=== PATIENT | male | born 1950 | race Caucasian/White ===

== ENCOUNTER 2016-11-22 07:15 | Day surgery (SDC) | payer MEDICARE ==
[~2016-11-22 07:15] MED LIST: 0.9% Sodium Chloride 1,000 ML IV SCH; ASCO100089 PO; ASPI-973 PO; CHOL10008 PO; GLUC1500 PO; LIP40 PO; LISI-571 PO; MULT1CAP33 PO; OMEG1CAP17 PO; Sodium Chloride LOK Flush 10 mL Syringe IV PRN; TAMS0.4C98 PO; [UNRECOGNIZED DRUG - OTHER] PO; fentaNYL-PF 50 mCg/mL 2 mL Inj IVPUSH PRN
[2016-11-22 07:25] VITALS: BP 151/76; PULSE 55; RESP 12; O2SAT 99
[2016-11-22 08:21] VITALS: BP 116/51; PULSE 47; RESP 16; O2SAT 97
[2016-11-22 08:29] VITALS: BP 113/67; PULSE 50; RESP 16; O2SAT 98
[2016-11-22 08:33] VITALS: BP 114/66; PULSE 50; RESP 16; O2SAT 97
--- NOTE | 2016-11-22 09:03 | ENDO ---
[address] [address] ENDOSCOPY PROCEDURE PATIENT: ESPINOZA HINES : 1950 MR#: [id number] ADMIT: 11/22/2016 JOB ID: [id number] DATE: 11/22/2016 PREOPERATIVE DIAGNOSIS(ES): Colorectal cancer screening. POSTOPERATIVE DIAGNOSIS(ES): Normal colonoscopy to cecum. OPERATION: Colonoscopy to cecum. SURGEON: Bryce Aldana MD. INDICATIONS: A 66-year-old man who is here for 10 year followup after a normal colonoscopy 10 years ago. After discussing the procedure and potential complications, he agreed to proceed. FINDINGS: He had a good prep. The scope was advanced to the cecum with clear visualization of the ileocecal valve and the appendiceal orifice which was photographed. He had a good prep. The scope was withdrawn over 8 minutes and 10 seconds. Retroflexed views of the rectum were obtained. There were no abnormalities including I saw no diverticula. There were no polyps, other neoplastic changes, ulcerations or vascular lesions. DESCRIPTION OF PROCEDURE: The procedure and sedation plan was discussed with the patient and nursing staff, and a procedural time-out was held. He received 5 mg of Versed and 100 mcg of fentanyl. Digital rectal examination was performed and the Olympus PCF H 180 AL video colonoscope was passed transanally, advanced to the cecum, withdrawn with results as stated above. No biopsies were taken. There were no complications. IMPRESSION: Normal colonoscopy to cecum. RECOMMENDATIONS: Repeat colonoscopy in 10 years.
== END 2016-11-22 23:59 | disposition home or self-care (01) ==
LOC: END 07:15
PROVIDERS: ATTEND Surgery
DX: Z12.11 Encounter for screening for malignant neoplasm of colon (principal); I25.10 Atherosclerotic heart disease of native coronary artery without angina pectoris; I10 Essential (primary) hypertension; E78.5 Hyperlipidemia, unspecified; N40.0 Benign prostatic hyperplasia without lower urinary tract symptoms; Z95.1 Presence of aortocoronary bypass graft; Z85.828 Personal history of other malignant neoplasm of skin; Z79.82 Long term (current) use of aspirin
CPT/HCPCS: 99153; G0121; G0500; J2250; J3010; J7030